=== PATIENT | male | born 1980 | race Caucasian/White ===

== ENCOUNTER 2018-10-16 14:03 | Observation (INO) | payer SELFPAY ==
[2018-10-16 14:05] VITALS: BP 152/76; PULSE 79; RESP 16; TEMP 36.7; O2SAT 98; BMI 29.3
[2018-10-16 15:59] LABS: Absolute Neutrophil Count 7.7 X10^3/uL (2.0-7.7); Basophil# 0.07 X10^3/uL; Basophil% 0.7 % (0-1); Eosinophil# 0.13 X10^3/uL; Eosinophils% 1.2 % (0-5); Hematocrit 39.5 % (40-54); Hemoglobin 14.1 g/dL (13.0-16.5); Mean Corp Hgb Conc 35.7 g/dL (32-36); Mean Corpuscular Hgb 31.7 pg (27.0-32.0); Mean Corpuscular Volume 88.8 fL (80-94); Mean Platelet Vol. 10.9 fl (6.2-12.0); Monocyte# 0.69 X10^3/uL; Monocyte% 6.5 % (0-10); NRBC Flagged by Analyzer 0 % (0-5); Neutrophil # 7.71 X10^3/uL (2.7-7.7); Neutrophil % 73.2 % (47-70); Platelet Count 277 K/mm3 (150-450); RBC Distribution Width CV 11.9 % (11.6-14.6); RBC Distribution Width SD 38.5 fl (35.1-43.9); Red Blood Count 4.45 M/mm3 (4.6-6.2); White Blood Count 10.5 K/mm3 (4.4-11.0)
[2018-10-16 16:08] VITALS: BP 117/87; PULSE 83; RESP 18; TEMP 37.2; O2SAT 97
[2018-10-16 16:08] LABS: Anion Gap 6 (5-15); BUN 10 mg/dL (7-18); Calcium,Total 9.2 mg/dL (8.5-10.1); Chloride 103 mmol/L (98-107); Creatinine, Serum 0.77 mg/dL (0.70-1.30); EST Glomerular Filtration Rate 121 mL/min (>60); Est Glom Filt Rate - Afr Amer 146 mL/min (>60); Estimated Creatinine Clearance 119.68 ml/min; Glucose 81 mg/dL (74-106); Potassium 3.7 mmol/L (3.5-5.1); Sodium Level 137 mmol/L (136-145)
--- NOTE | 2018-10-16 18:01 | NURSING ---
DR TERESITA MISHRA
--- NOTE | 2018-10-16 18:12 | ED.VISSUMM ---
- ER Visit Summary Date of Service: 10/16/18 Chief Complaint: Skin infection History of Present Illness: The patient is a 38 M with a left forearm skin infection. Symptoms started about 6 days ago. He had a blister. He was treated with doxycycline for the past 3 days, but the infection is spreading up his entire left forearm. Denies fevers or systemic symptoms. Physical Examination: Afebrile and vital signs unremarkable. Patient has a pustule to his proximal and dorsal left forearm. The entire dorsal forearm is erythematous. No lymphadenopathy. Skin otherwise intact. Neurovascular intact distally. Exam otherwise unremarkable. Test Results: Laboratory studies unremarkable. Cultures pending. Emergency Department Course and Treatment: Patient treated with IV vancomycin for failed outpatient therapy. Risks of I&D versus further outpatient care were discussed. Patient would like observation. I contacted the hospitalist who will admit for further care. Treatment Plan: As above Disposition: [facility] observation Impression: 1. Left forearm cellulitis This note was generated with [employer] dictation software. It may contain incorrect words, spelling, and punctuation that were not noted in review of the chart prior to signing ED Disposition - Plan for ED Patient: Referrals: Bert Aguilera MD [Primary Care Provider] -
--- NOTE | 2018-10-16 18:14 | NURSING ---
MED SURG OBS CELLULITIS LT ARM TERESITA
[2018-10-16 19:13] VITALS: BMI 29.4
[2018-10-16 19:17] VITALS: BMI 28.8
[2018-10-16 19:25] VITALS: BP 134/80; PULSE 75; RESP 16; TEMP 36.7; O2SAT 96
[2018-10-16 20:00] VITALS: PULSE 83
--- NOTE | 2018-10-16 20:21 | HP.PCM_ITS ---
Problem List (1) Left forearm cellulitis Status: Acute (2) Hypertension Status: Chronic (3) Dyslipidemia Status: Chronic History of Present Illness Date of Admission: 10/16/18 Chief Complaint: Left forearm redness, cellulitis and failed outpatient antibiotics The patient is a 38 year old M, fairly healthy with history of hypertension and dyslipidemia on medications came to ER with left forearm cellulitis with a pustule. Patient had noticed pustule on left elbow and redness about 6 days ago. He went to urgent care and was given doxycycline 100 mg twice daily and t ook 6 doses until morning today. Cellulitis did not improve but is spread proximally and distally from upper arm. Patient has pain, tenderness and restriction of the flexion at elbow joint. Denies any high fever or chills. In ED, vitals were stable. No tachycardia. No leukocytosis. Past Medical History Past Medical History (Chronic Problems): Chronic Problems Hypertension (Chronic) Dyslipidemia (Chronic) Allergies No Known Allergies Allergy (Verified 10/16/18 14:04) Home Medications: Ambulatory Orders Medication Instructions Recorded Acetaminophen [Tylenol Extra 1,000 mg PO Q6H PRN PRN 10/16/18 Strength] Atorvastatin Calcium [Lipitor] 20 mg PO QHS 10/16/18 Doxycycline 100 mg PO BID 10/16/18 Ibuprofen 400 mg PO DAILY PRN PRN 10/16/18 Lisinopril [Zestril] 10 mg PO DAILY 10/16/18 Smoking Status: Never smoker - *Family History Paternal History Items: Hypertension Maternal History Items: Hypertension Review of Systems Constitutional: Denies: Chills, Fever, Weight Change HEENT: Denies: Head Aches, Sinus Congestion, Sinus Drainage Cardiovascular: Denies: Chest Pain, Palpitations Respiratory: Denies: Cough, Shortness of breath at rest, Sputum production Gastrointestinal: Denies: Abdominal Pain, Nausea, Vomiting Genitourinary: Denies: Dysuria Musculoskeletal: Denies: Joint Pain, Joint Tenderness Skin: Reports: Rash, Skin Changes Neurological: Denies: Numbness, Tingling, Focal weakness Psychiatric: Denies: Anxiety, Depression, Homicidal Ideations, Suicidal Ideation s Hematologic/ Lymphatic: Denies: Easy Bruising, Easy Bleeding VTE Information - Inpt Only VTE Present on Admission: No VTE Mechan Device Prophylaxis: None VTE Pharm Prophylaxis ordered?: No Reason prophylaxis not ordered:: Procedure Not Indicated Patient Problems: Active and Suspected Problems Left forearm cellulitis (Acute) - Physical Exam General: Alert, Oriented x3, Cooperative HEENT: Atraumatic, PERRLA, EOMI, Normocephalic Neck: Supple, No JVD, Negative Carotid Bruits Lungs: Clear to auscultation, Normal air movement, No rhonchi, No wheeze, No rales Cardiovascular: Regular rate, Regular Rhythm, Normal S1, Normal S2, No murmurs Abdomen: Bowel Sounds Present, Soft, Non Tender, Non-Distended Extremities: No edema, Capillary Refill Less than 3 Seconds Skin: No rashes, No breakdown, - - Erythematous rash around left elbow, spread to left forearm to left mid arm. Small pustule, yellow-colored noted on the left elbow. Musculoskeletal: No Tenderness to Palpation of Joints or Extremities Lymphatic: No Cervical, Supraclavicular, or Inguinal Adenopathy Neurological: Cranial nerves II-XII grossly intact, Deep Tendon Reflexes 2+/4 and Symmetrical, Neuro grossly intact, Motor Exam 5/5 strength throughout Psych/Mental Status: Normal Affect, Appropriate Vital Signs Temp Pulse Resp BP Pulse Ox 98.1 F 75 16 134/80 H 96 10/16/18 19:25 10/16/18 19:25 10/16/18 19:25 10/16/18 19:25 10/16/18 19:25 Oxygen Delivery Method Room Air Weight: 178 lb 14.4 oz Body Mass Index (BMI) 28.8 Laboratory Tests Past 24 Hrs 10/16/18 10/16/18 15:45 15:45 WBC 10.5 RBC 4.45 L Hgb 14.1 Hct 39.5 L MCV 88.8 MCH 31.7 MCHC 35.7 RDW Std Deviation 38.5 RDW Coeff of Leilani 11.9 Plt Count 277 MPV 10.9 Immature Gran % (Auto) 0.400 Neut % (Auto) 73.2 H Lymph % (Auto) 18.0 L [place] % (Auto) 6.5 Eos % (Auto) 1.2 Baso % (Auto) 0.7 Absolute Neuts (auto) 7.7 Absolute Lymphs (auto) 1.90 Absolute Nucleated RBC 0.00 Nucleated RBC % 0 Sodium 137 Potassium 3.7 Chloride 103 Carbon Dioxide 28.0 Anion Gap 6 BUN 10 Creatinine 0.77 Estim Creat Clear Calc 119.68 Est GFR (MDRD) Af Amer 146 Est GFR (MDRD) Non-Af 121 BUN/Creatinine Ratio 13.0 Glucose 81 Calcium 9.2 Assessment/Plan All Active Problems Left forearm cellulitis (Acute) The patient is a 38 year old M, fairly healthy with history of hypertension and dyslipidemia on medications came to ER with left forearm cellulitis with a pustule. Patient had noticed pustule on left elbow and redness about 6 days ago. He went to urgent care and was given doxycycline 100 mg twice daily and took 6 doses until morning today. Cellulitis did not improve but is spread proximally and distally from upper arm. Patient has pain, tenderness and restriction of the flexion at elbow joint. Denies any high fever or chills. In ED, vitals were stable. No tachycardia. No leukocytosis. 1. Left forearm and arm cellulitis not responsive to outpatient antibiotics: Patient got IV vancomycin in ED and as per patient redness is better. Continue IV vancomycin. wound MRSA PCR and culture from pustule ordered and may taper the antibiotics if MRSA is negative. MRSA nasal screen ordered. Blood cultures x2 are pending. 2. Other comorbidities include hypertension and dyslipidemia: Home medications continued. On atorvastatin and lisinopril 10 mg daily. Blood pressure is controlled. DVT prophylaxis, low risk. Early ambulation encouraged. Laboratory Results 10/16/18 15:45: WBC 10.5, RBC 4.45 L, Hgb 14.1, Hct 39.5 L, MCV 88.8, MCH 31.7, MCHC 35.7, RDW Std Deviation 38.5, RDW Coeff of Leilani 11.9, Plt Count 277, MPV 10.9, Immature Gran % (Auto) 0.400, Neut % (Auto) 73.2 H, Lymph % (Auto) 18.0 L, [place] % (Auto) 6.5, Eos % (Auto) 1.2, Baso % (Auto) 0.7, Absolute Neuts (auto) 7.7, Absolute Lymphs (auto) 1.90, Absolute Nucleated RBC 0.00, Nucleated RBC % 0 10/16/18 15:45: Sodium 137, Potassium 3.7, Chloride 103, Carbon Dioxide 28.0, Anion Gap 6, BUN 10, Creatinine 0.77, Estim Creat Clear Calc 119.68, Est GFR ( RD) Af Amer 146, Est GFR (MDRD) Non-Af 121, BUN/Creatinine Ratio 13.0, Glucose 81, Calcium 9.2 Code Visit OBSV E&M: 77290 Initial observation care L3
--- NOTE | 2018-10-16 20:46 | PCM.RX.CS ---
Consult Pharmacy has been consulted to manage selected antiobiotic: Vancomycin Type of Consult: New start Suspected Infection: Skin/Soft tissue Labs: Sodium 137 mmol/L (136-145) 10/16/18 15:45 Potassium 3.7 mmol/L (3.5-5.1) 10/16/18 15:45 Chloride 103 mmol/L (98-107) 10/16/18 15:45 Carbon Dioxide 28.0 mmol/L (21.0-32.0) 10/16/18 15:45 6 (5-15) 10/16/18 15:45 BUN 10 mg/dL (7-18) 10/16/18 15:45 0.77 mg/dL (0.70-1.30) 10/16/18 15:45 Est GFR (MDRD) Af Amer 146 mL/min (>60) 10/16/18 15:45 Est GFR (MDRD) Non-Af 121 mL/min (>60) 10/16/18 15:45 13.0 RATIO (10-20) 10/16/18 15:45 Glucose 81 mg/dL (74-106) 10/16/18 15:45 Weight used for dosin lb 9.191 oz Estimated Creatinine Clearance: 119.6 Goal Trough: 10-15 mcg/mL Pharmacy Plan for Drug Dosing: Pharmacy Service will continue to monitor and adjust dosing as required. Vancomycin 1250mg given in ED at 1610. Calculated dose to maintain trough of 10-15 is 1250mg q12h starting at 0400 on 10/17 Trough will be obtained on 10/18 at 0330 before 4th dose Follow-Up Labs: Trough Vancomycin
[2018-10-16] MEDS: 0.9% Normal Saline 1,000 ML 100 ML IV (20:50)
[2018-10-16] MEDS: 0.9% NaCl Peripheral Flush Adult/Peds IV (21:03)
[2018-10-16 22:15] VITALS: BP 137/86; PULSE 74; RESP 16; TEMP 37.1; O2SAT 97
[2018-10-16] MEDS: Lisinopril 10 MG Tablet PO (22:20)
[2018-10-16] MEDS: Atorvastatin Calcium 20 MG Tablet PO (22:20)
[2018-10-17 00:52] LABS: M R Staph aureus DNA By PCR Negative (Negative); Probe Check PASS; Specimen Processing Control PASS; Staph aureus DNA By PCR POSITIVE (Negative)
[2018-10-17 03:50] VITALS: BP 124/78; PULSE 66; RESP 16; TEMP 36.6; O2SAT 96
[2018-10-17 06:30] LABS: Absolute Lymphocyte Count 2.04 X10^3/uL (0.83-4.51); Absolute Neutrophil Count 4.5 X10^3/uL (2.0-7.7); Basophil# 0.05 X10^3/uL; Basophil% 0.7 % (0-1); Eosinophil# 0.16 X10^3/uL; Eosinophils% 2.2 % (0-5); Hematocrit 38.3 % (40-54); Hemoglobin 13.4 g/dL (13.0-16.5); Lymphocyte # 2.04 X10^3/ul (4.0); Mean Corpuscular Hgb 31.6 pg (27.0-32.0); Mean Corpuscular Volume 90.3 fL (80-94); Monocyte# 0.54 X10^3/uL; Monocyte% 7.4 % (0-10); NRBC Flagged by Analyzer 0 % (0-5); Neutrophil # 4.48 X10^3/uL (2.7-7.7); Neutrophil % 61.4 % (47-70); Platelet Count 268 K/mm3 (150-450); RBC Distribution Width SD 39.8 fl (35.1-43.9); Red Blood Count 4.24 M/mm3 (4.6-6.2); White Blood Count 7.3 K/mm3 (4.4-11.0)
[2018-10-17 07:40] VITALS: O2SAT 96
[2018-10-17 08:08] VITALS: BP 127/82; PULSE 68; RESP 18; TEMP 36.9; O2SAT 98
--- NOTE | 2018-10-17 08:15 | PCM.PROGNOTE ---
Patient Problems: Active and Suspected Problems Left forearm cellulitis (Acute) Subjective: Chief complaint: Follow-up after admission for left arm/forearm cellulitis with failure of outpatient treatment. Patient seen and examined. No acute events overnight. Swelling and erythema of the left arm and forearm improved. Patient has been afebrile overnight. His vital signs are stable. - Physical Exam General: Alert, Oriented x3, Cooperative, No apparent distress HEENT: Atraumatic, PERRLA, EOMI, Normocephalic Oral: Moist Mucosa, No Gingival or Mucosal Lesions/ Ulcerations Neck: Supple, No JVD, Negative Carotid Bruits, Trachea Midline, Thyroid Normal Size and Texture Lungs: Clear to auscultation, Normal air movement, No rhonchi, No wheeze, No rales Cardiovascular: Regular rate, Regular Rhythm, Normal S1, Normal S2, PMI Normal Abdomen: Bowel Sounds Present, Soft, Non Tender, Non-Distended, No Hepato-splenomegaly Extremities: No clubbing, No cyanosis, No edema Skin: No rashes, No breakdown, - - Left upper extremity: Mild erythema and swelling of the lower one third of the left arm and upper two thirds of the left forearm on the posterior aspect, improving. Lymphatic: No Cervical, Supraclavicular, or Inguinal Adenopathy Neurological: Cranial nerves II-XII grossly intact, Motor Exam 5/5 strength throughout Psych/Mental Status: Normal Affect, Appropriate, Alert and oriented to time, place, person, mood and affect Vital Signs Temp Pulse Resp BP Pulse Ox 98.5 F 68 18 127/82 H 98 10/17/18 08:08 10/17/18 08:08 10/17/18 08:08 10/17/18 08:08 10/17/18 08:08 Oxygen Delivery Method Room Air Weight: 178 lb 14.4 oz Body Mass Index (BMI) 28.8 Intake and Output for Last 24 Hours 10/15/18 10/16/18 10/17/18 23:59 23:59 23:59 Intake Total 610 / 610 971 / 971 Balance 610 / 610 971 / 971 Laboratory Tests Past 24 Hrs 10/16/18 10/16/18 10/16/18 15:45 15:45 22:29 WBC 10.5 RBC 4.45 L Hgb 14.1 Hct 39.5 L MCV 88.8 MCH 31.7 MCHC 35.7 RDW Std Deviation 38.5 RDW Coeff of Leilani 11.9 Plt Count 277 MPV 10.9 Immature Gran % (Auto) 0.400 Neut % (Auto) 73.2 H Lymph % (Auto) 18.0 L [place] % (Auto) 6.5 Eos % (Auto) 1.2 Baso % (Auto) 0.7 Absolute Neuts (auto) 7.7 Absolute Lymphs (auto) 1.90 Absolute Nucleated RBC 0.00 Nucleated RBC % 0 Sodium 137 Potassium 3.7 Chloride 103 Carbon Dioxide 28.0 Anion Gap 6 BUN 10 Creatinine 0.77 Estim Creat Clear Calc 119.68 Est GFR (MDRD) Af Amer 146 Est GFR (MDRD) Non-Af 121 BUN/Creatinine Ratio 13.0 Glucose 81 Calcium 9.2 S.aureus Protein A PCR POSITIVE H MRSA (PCR) Negative 10/16/18 10/17/18 22:29 06:10 WBC 7.3 RBC 4.24 L Hgb 13.4 Hct 38.3 L MCV 90.3 MCH 31.6 MCHC 35.0 RDW Std Deviation 39.8 RDW Coeff of Leilani 12.0 Plt Count 268 MPV 11.0 Immature Gran % (Auto) 0.300 Neut % (Auto) 61.4 Lymph % (Auto) 28.0 [place] % (Auto) 7.4 Eos % (Auto) 2.2 Baso % (Auto) 0.7 Absolute Neuts (auto) 4.5 Absolute Lymphs (auto) 2.04 Absolute Nucleated RBC 0.00 Nucleated RBC % 0 Sodium Potassium Chloride Carbon Dioxide Anion Gap BUN Creatinine Estim Creat Clear Calc Est GFR (MDRD) Af Amer Est GFR (MDRD) Non-Af BUN/Creatinine Ratio Glucose Calcium S.aureus Protein A PCR MRSA (PCR) Negative Medical Necessity - Tobacco Use Smoking Status: Never smoker Assessment/Plan All Active Problems Left forearm cellulitis (Acute) This is a 38 years old male patient admitted because of worsening left upper extremity swelling and erythema, has been on doxycycline for 3 days without improvement and he was admitted for acute left arm/forearm cellulitis with failure of outpatient treatment. #1 acute left arm/forearm cellulitis: With failure of outpatient treatment, patient has been on doxycycline for 3 days without improvement. He has been afebrile, no leukocytosis, other vital signs are stable. Swelling and erythema of the left arm and forearm improving. MRSA screen was negative. Plan: DC IV vancomycin, start IV cefazolin, anticipate discharge home tomorrow. #2 hypertension: Blood pressure stable, continue lisinopril. #3 hyperlipidemia: Continue statins. #4 DVT prophylaxis: Low risk patient, no prophylaxis indicated. This note was generated with [employer] dictation software. It may contain incorrect words, spelling, and punctuation that were not noted in checking the note before signing. Code Visit OBSV E&M: 45261 Subsequent observation care L2
[2018-10-17] MEDS: Cefazolin 2 GM in 0.9% Normal Saline 100 ML IV ×3 (09:59→21:35)
--- NOTE | 2018-10-17 10:36 | NURSING ---
wound photo: left forearm near elbow
[2018-10-17] MEDS: 0.9% NaCl Peripheral Flush Adult/Peds IV ×2 (14:32→21:35)
[2018-10-17 14:46] VITALS: BP 115/74; PULSE 72; RESP 18; TEMP 36.7; O2SAT 98
[2018-10-17 21:20] VITALS: BP 136/83; PULSE 77; RESP 17; TEMP 37.2; O2SAT 98
[2018-10-17] MEDS: Lisinopril 10 MG Tablet PO (22:26)
[2018-10-17] MEDS: Atorvastatin Calcium 20 MG Tablet PO (22:26)
[2018-10-18 03:25] VITALS: BP 110/71; PULSE 75; RESP 16; TEMP 36.6; O2SAT 97
[2018-10-18] MEDS: Cefazolin 2 GM in 0.9% Normal Saline 100 ML IV (05:11)
[2018-10-18] MEDS: 0.9% NaCl Peripheral Flush Adult/Peds IV (05:11)
[2018-10-18 07:35] VITALS: O2SAT 95
--- NOTE | 2018-10-18 08:44 | DCINST_ITS ---
- Discharge Diagnoses Current Active Problems: Current Active and Chronic Problems Left forearm cellulitis (Acute) Hypertension (Chronic) Dyslipidemia (Chronic) You will use the following diet at home:: Cardiac Your food should be the consistency of: Regular Discharge Activity: Return to Normal Activity Weight Bearing Status: Full weight bearing Call your doctor if you observe: Fever of 101 or Higher, Shortness of breath, Dizziness, Fainting spells, Chest pain, Increased palpitations (irregular heartbeat), Uncontrolled pain Allergies/Adverse Reactions: Allergies No Known Allergies Allergy (Verified 10/16/18 14:04) Medications to take at Discharge Acetaminophen [Tylenol] 1,000 mg PO Q6H PRN PRN 10/16/18 Atorvastatin Calcium [Lipitor] 20 mg PO QHS 10/16/18 Ibuprofen 400 mg PO DAILY PRN PRN 10/16/18 Lisinopril [Zestril] 10 mg PO DAILY 10/16/18 Cefadroxil [Duracef] 1,000 mg PO BID #24 cap 10/18/18 The following prescriptions were given: Cefadroxil [Duracef] 1,000 mg PO BID #24 cap Transmission Status: Pending to [facility]/pharmacy #[id number] Primary Care Physician: Bert Aguilera MD [Primary Care Provider] - Please follow up with your Primary Care Physician in: 1 week. Test Results: Test results from this visit will be discussed in further detail at your follow- up appointment, if applicable.
[2018-10-18 09:25] VITALS: BP 108/59; PULSE 77; RESP 15; TEMP 36.5; O2SAT 99
--- NOTE | 2018-10-18 12:15 | PCM.DC.SUM ---
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 Swelling and erythema of the left upper extremity continue to improve. He has been afebrile, no leukocytosis. No other complaints. Vital signs are stable. The patient is a 38 year old M admitted because of worsening left upper extremity swelling and erythema, failed outpatient treatment as patient has been on doxycycline for 3 days before admission without improvement and he was admitted for acute left arm/left forearm cellulitis. Initially, patient was treated with IV vancomycin. MRSA screen was negative and antibiotics was changed to IV cefazolin. Routine blood work was unremarkable and there was no evidence of leukocytosis. With IV cefazolin, local erythema and swelling of the left upper extremity significantly improved. There was a small wound on the dorsal aspect of the left elbow that was cultured and revealed staph aureus, final result is pending at the time of discharge. The staph aureus is likely MSSA as the swelling and erythema of the left upper extremity has been improving. Patient remained afebrile throughout admission. Patient discharged home in a stable medical condition, discharged on Duricef 1000 mg p.o. twice daily for 6 days of treatment, recommended follow-up with PCP in 1 week. - Physical Exam General: Alert, Oriented x3, Cooperative, No apparent distress HEENT: Atraumatic, PERRLA, EOMI, Normocephalic Oral: Moist Mucosa, No Gingival or Mucosal Lesions/ Ulcerations Neck: Supple, No JVD, Negative Carotid Bruits, Trachea Midline, Thyroid Normal Size and Texture Lungs: Clear to auscultation, Normal air movement, No rhonchi, No wheeze, No rales Cardiovascular: Regular rate, Regular Rhythm, Normal S1, Normal S2, PMI Normal Abdomen: Bowel Sounds Present, Soft, Non Tender, Non-Distended, No Hepato-splenomegaly Extremities: No clubbing, No cyanosis, No edema Skin: No rashes, - - Barely visible minimal erythema of the dorsal aspect of the left arm and forearm, significantly improved. Lymphatic: No Cervical, Supraclavicular, or Inguinal Adenopathy Neurological: Cranial nerves II-XII grossly intact, Neuro grossly intact Psych/Mental Status: Normal Affect, Appropriate Vital Signs Temp Pulse Resp BP Pulse Ox 97.7 F L 77 15 108/59 L 99 10/18/18 09:25 10/18/18 09:25 10/18/18 09:25 10/18/18 09:25 10/18/18 09:25 Oxygen Delivery Method Room Air Weight: 178 lb 14.4 oz Body Mass Index (BMI) 28.8 Intake and Output for Last 24 Hours 10/16/18 10/17/18 10/18/18 23:59 23:59 23:59 Intake Total 610 / 610 3066 / 3066 220 / 220 Balance 610 / 610 3066 / 3066 220 / 220 Microbiology Past 72 Hours 10/17/18 08:30 Gram Stain - Final Wound - Arm Left Wound Culture - Preliminary Staphylococcus aureus Discharge Activity: Return to Normal Activity Weight Bearing Status: Full weight bearing Call your doctor if you observe: Fever of 101 or Higher, Shortness of breath, Dizziness, Fainting spells, Chest pain, Increased palpitations (irregular heartbeat), Uncontrolled pain Home Medications: Medications to take at Discharge Acetaminophen [Tylenol] 1,000 mg PO Q6H PRN PRN 10/16/18 Atorvastatin Calcium [Lipitor] 20 mg PO QHS 10/16/18 Ibuprofen 400 mg PO DAILY PRN PRN 10/16/18 Lisinopril [Zestril] 10 mg PO DAILY 10/16/18 Cefadroxil [Duracef] 1,000 mg PO BID #24 cap 10/18/18 Following Prescrptions Were Given to Patient: Cefadroxil [Duracef] 1,000 mg PO BID #24 cap Transmission Status: Received by [facility]/pharmacy #[id number] Primary Care Physician: Bert Aguilera MD [Primary Care Provider] - Please follow up with your Primary Care Physician in: 1 week. Disposition: Home Minutes spent on discharge:: 25 Patient Condition:: Stable Medical Necessity - Tobacco Use Smoking Status: Never smoker Meaningful Use Info Meaningful Use Diagnoses (Choose all that apply): None applicable Code Visit Inpatient E&M: 77962 Disch Hosp
== END 2018-10-18 08:44 | disposition home or self-care (01) ==
LOC: ED 15:54 → PCU 21:18
PROVIDERS: Admitting Provider Internal Medicine; Emergency Provider Emergency Medicine; Family Provider Family Medicine; PCP Family Medicine; Visit Provider Hospitalist
DX: L03.114 Cellulitis of left upper limb (principal); E78.5 Hyperlipidemia, unspecified; I10 Essential (primary) hypertension; Z79.899 Other long term (current) drug therapy; B95.61 Methicillin susceptible Staphylococcus aureus infection as the cause of diseases classified elsewhere
CPT/HCPCS: 36415; 80048; 85025; 87040; 87070; 87075; 87077; 87186; 87205; 87640; 87641; 96361; 96365; 96366; 96375; 96376; 99218; 99284; J7030; J7040; J7050; A4216; G0378